=== PATIENT | female | born 1945 | race Caucasian/White ===

== ENCOUNTER → 2017-09-25 14:24 | Outpatient (CLI) | payer MEDICARE, OTHER, SELFPAY ==
--- NOTE | 2017-09-25 14:42 | RAD_ITS ---
STUDY: X-RAY - PELVIS REASON FOR EXAM: Female, 72 years old. Inflammatory polyarthropathy TECHNIQUE: One view of the pelvis was obtained. COMPARISON: None. FINDINGS: There is a non-specific bowel gas pattern. Normal visualized soft tissue structures. There is narrowing with cortical sclerosis and osteophyte formation of the sacroiliac joint consistent with degenerative osteoarthritic changes. Normal visualized bilateral superior and inferior pubic rami. Normal pubic symphysis. Normal ischial tuberosities. There are osteoarthritic changes of the right femoral head with marginal osteophyte formation. Normal right acetabulum. There is mild articular joint space narrowing of the right hip. There are osteoarthritic changes of the left femoral head with marginal osteophyte formation. Normal left acetabulum. There is mild articular joint space narrowing of the left hip. RAD/Pelvis 1 or 2 Views IMPRESSION: Mild degenerative changes without acute findings Electronically Signed: Lito Merchant DO at 9:09 EDT Tel , Service support ,
[2017-09-25 15:44] LABS: Absolute Lymphocyte Count 2.15 X10^3/ul (0.83-4.51); Absolute Neutrophil Count 8.1 X10^3/uL (2.0-7.7); Basophil# 0.02 X10^3/uL; Basophil% 0.2 % (0-1); Eosinophil# 0.08 X10^3/uL; Eosinophils% 0.7 % (0-5); Hematocrit 39.4 % (37-47); Hemoglobin 12.6 g/dl (12.0-15.0); Lymphocyte # 2.15 X10^3/ul (4.0); Lymphocyte % 19.3 % (19-41); Mean Corpuscular Hgb 30.2 pg (27.0-32.0); Mean Corpuscular Volume 94.5 fL (81-99); Mean Platelet Vol. 10.5 fl (6.2-12.0); Monocyte# 0.72 X10^3/uL; Monocyte% 6.5 % (0-10); Neutrophil # 8.12 X10^3/uL (2.7-7.7); Platelet Count 267 K/mm3 (150-450); RBC Distribution Width SD 43.7 fl (35.1-43.9); Red Blood Count 4.17 M/mm3 (4.2-5.4); White Blood Count 11.1 K/mm3 (4.4-11.0)
[2017-09-25 15:54] LABS: AST(SGOT) 16 U/L (15-37); Alanine Aminotransfer ALT/SGPT 21 U/L (13-56); Albumin, Serum 3.9 g/dL (3.2-5.0); Alkaline Phosphatase 128 U/L (45-117); BUN 18 mg/dL (7-18); BUN/Creat Ratio 17.1 RATIO (10-20); Calcium,Total 9.7 mg/dL (8.5-10.1); Chloride 104 mmol/L (98-107); Creatinine, Serum 1.05 mg/dL (0.55-1.02); EST Glomerular Filtration Rate 55 mL/min (>60); Est Glom Filt Rate - Afr Amer 66 mL/min (>60); Globulin 3.8 g/dL (2.2-4.2); Glucose 97 mg/dL (74-106); Potassium 4.1 mmol/L (3.5-5.1); Protein, Total 7.7 g/dL (6.4-8.2); Sodium Level 140 mmol/L (136-145)
[2017-09-25 15:55] LABS: Anion Gap 9 (5-15); CRP 4.91 mg/L (0.0-3.0); Rheumatoid Factor < 10.0 IU/mL (<15)
[2017-09-25 16:11] LABS: POSITIVE COUNT NO; POSITIVE DIFFERENTIAL NO; POSITIVE MORPHOLOGY NO
[2017-09-25 16:53] LABS: Erythrocyte Sedimentation Rate 42 mm/hr (0-30)
[2017-09-27 14:07] LABS: SJOGREN'S Anti-SS-A test < 0.2 AI (0.0-0.9); SJOGREN'S Anti-SS-B test 0.6 AI (0.0-0.9)
[2017-09-28 09:59] LABS: ANTINUCLEAR ANTIBODIES DIRECT Negative (Negative)
[2017-10-02 15:56] LABS: CCP IgG Antibodies 10 units (0-19); HEPATITIS B SURFACE AG Negative (Negative); HLA B27 Negative (.); Hep B Surface Antibodies Non Reactive (.); Hep C Antibodies <0.1 s/co ratio (0.0-0.9)
== END ==
PROVIDERS: Family Provider Family Medicine; PCP Family Medicine; Visit Provider Internal Medicine Rheumatology
DX: M06.4 Inflammatory polyarthropathy (principal); M47.897 Other spondylosis, lumbosacral region
CPT/HCPCS: 36415; 72170; 80053; 81374; 85025; 85652; 86038; 86140; 86200; 86235; 86431; 86706; 86803; 87340

== ENCOUNTER → 2019-03-05 17:34 | Outpatient (CLI) | payer MEDICARE, OTHER, SELFPAY ==
[2019-03-05 18:13] LABS: Source- Body Fluid SYNOVIAL
[2019-03-05 18:18] LABS: CRYSTALS, BODY FLUID Other, see comment
[2019-03-06 09:56] LABS: Pathologist Review Reviewed
== END ==
PROVIDERS: Family Provider Family Medicine; PCP Family Medicine; Referring Provider Internal Medicine Rheumatology; Visit Provider Internal Medicine Rheumatology
DX: M06.4 Inflammatory polyarthropathy (principal); M47.897 Other spondylosis, lumbosacral region; I25.10 Atherosclerotic heart disease of native coronary artery without angina pectoris; I10 Essential (primary) hypertension; E05.10 Thyrotoxicosis with toxic single thyroid nodule without thyrotoxic crisis or storm; E78.5 Hyperlipidemia, unspecified; F32.89 Other specified depressive episodes; Z79.899 Other long term (current) drug therapy; Z95.1 Presence of aortocoronary bypass graft; Z95.5 Presence of coronary angioplasty implant and graft
CPT/HCPCS: 87070; 87075; 87205; 89060

== ENCOUNTER → 2019-05-20 16:16 | Outpatient (CLI) | payer MEDICARE, OTHER, SELFPAY ==
[2019-05-20 16:50] LABS: Pathologist Comment May follow
[2019-05-20 17:37] LABS: Synovial Fld Mononuclear WBC % 80.7 %; Synovial Fld Polynuclear WBC # 0.028 10^3/uL; Synovial Fld Polynuclear WBC % 19.3 %
[2019-05-20 18:50] LABS: RBC /Synovial Fluid 0.002 10^6/uL (0)
[2019-05-20 19:07] LABS: AUTO B FLUID DILUENT BKGD CT WBC <0.1 RBC <0.01 (W<.1,R<.01); Source / Synovial Fluid LT KNEE; Source- Body Fluid SYNOVIAL; Viscosity / Synovial Fluid Sl. Viscous (HIGH)
[2019-05-20 19:08] LABS: Appearance /Synovial Fluid Sl Cl (CLEAR); Color / Synovial Fluid Yellow (Pale Yellow); Lymph 3 %; Monocyte /Synovial Fluid 45 %; Neutrophil 12 % (0-25)
[2019-05-20 19:10] LABS: Other Cell /Synovial Fluid 40 %
[2019-05-20 19:12] LABS: Body Fluid QC Type(s) BF3Q,BF4Q
[2019-05-20 19:17] LABS: CRYSTALS, BODY FLUID Other, see comment
[2019-05-21 14:31] LABS: Pathologist Review Reviewed
== END ==
PROVIDERS: Family Provider Family Medicine; PCP Family Medicine; Referring Provider Internal Medicine Rheumatology; Visit Provider Internal Medicine Rheumatology
DX: M06.4 Inflammatory polyarthropathy (principal); M17.0 Bilateral primary osteoarthritis of knee; M47.897 Other spondylosis, lumbosacral region; I25.10 Atherosclerotic heart disease of native coronary artery without angina pectoris; I10 Essential (primary) hypertension; E05.10 Thyrotoxicosis with toxic single thyroid nodule without thyrotoxic crisis or storm; E78.5 Hyperlipidemia, unspecified; F32.89 Other specified depressive episodes; Z95.5 Presence of coronary angioplasty implant and graft; Z95.1 Presence of aortocoronary bypass graft
CPT/HCPCS: 87070; 87075; 87205; 89050; 89051; 89060